=== PATIENT | female | born 1995 | race Caucasian/White ===

== ENCOUNTER 2021-02-13 09:12 | Emergency (ER) | payer OTHER, SELFPAY ==
[2021-02-13 09:13] VITALS: BP 134/89; PULSE 96; RESP 18; TEMP 36.5; O2SAT 100; BMI 26.6
--- NOTE | 2021-02-13 09:33 | ED_ITS ---
HPI - Anxiety General: Chief Complaint: Anxiety Stated Complaint: Chest Pain Time Seen by Provider: 02/13/21 09:13 History of Present Illness: HPI narrative: Patient is a 25-year-old female comes to the ED with anxiety. Patient says she was at [facility] walk-in clinic and told them that she is feeling anxious and has some chest pain and they sent her immediately here to the ED. Patient says she has just been under a lot of stress lately and she is having some mild chest pain with it. Patient says this is been going on for the past couple weeks. Patient says she has had these symptoms before. She denies any shortness of breath or any other sympto ms. Patient did not want any lab work, EKG or imaging done while here in the ED. Patient does not have a primary care doctor and would like a referral to one. Associated symptoms: Deny chest pain, chills, fever(s), headache(s), nausea, palpitations or vomiting Review of Systems Const: Denies: fever(s), chills or fatigue Eyes: Denies: change in vision or eye discomfort ENMT: Denies: throat pain, odynophagia, nasal discharge or nasal congestion Card: Denies: chest pain, palpitations, edema, swelling of feet/ankles, dyspnea on exertion or orthopnea Resp: Denies: dyspnea, productive cough or non-productive cough GI: Denies: abdominal pain, nausea, vomiting, diarrhea, constipation or hematochezia : Denies: flank pain, dysuria or hematuria Musc: Denies: neck pain, back pain or extremity swelling Skin/Breast: Denies: rash or new lesions Neuro: Denies: headache(s), numbness in extremities or weakness in extremities Psych: Reports: anxiety and other (stress) [facility] Female Reproductive History: Date of last menstrual period: 01/30/21 Physical Exam Const: COMMON NORMALS: no acute distress, patient oriented x3, healthy appearing and alert GENERAL APPEARANCE: cooperative and comfortable HENMT: COMMON NORMALS: normocephalic HEAD & SCALP: normocephalic MOUTH: Normal oral and palatal mucosa present THROAT: posterior oropharynx normal and uvula midline Neck/C-Spine: COMMON NORMALS: supple GENERAL: Yes normal visual inspection Resp: COMMON NORMALS: normal respiratory effort, No retractions, No use of accessory muscles and clear to auscultation bilaterally AUSCULTATION: clear to auscultation bilaterally Cardio: COMMON NORMALS: regular rate, regular rhythm, S1 normal heart sound pr esent, S2 normal heart sound present, No gallops present (Cardio), No clicks present (Cardio), No murmurs present (Cardio) and Peripheral pulses 2+ throughout RATE: regular rate RHYTHM: regular rhythm HEART SOUNDS: S1 normal heart sound present and S2 normal heart sound present PERIPHERAL PULSES: Peripheral pulses 2+ throughout GI: COMMON NORMALS: Normal to inspection, nondistended, normoactive bowel sounds present, Soft to palpation, non-tender and no masses PALPATION: Yes Soft to palpation : COMMON NORMALS: Yes no CVA tenderness BLADDER/KIDNEY EXAM: Yes no CVA tenderness Back/Pelvis: COMMON NORMALS: no CVA tenderness Extremity: COMMON NORMALS: normal to inspection Neuro: COMMON NORMALS: patient oriented x3 and moves all extremities SENSORIUM/ORIENTATION: Yes alert Psych: COMMON NORMALS: mental status grossly normal, cooperative, speech normal and activity/motor behavior normal SPEECH: Yes normal speech MOOD & AFFECT: Yes anxious Skin: GENERAL SKIN EXAM: dry skin Course Vital Signs: Vital signs: Vital Signs Temperature 97.7 F 02/13/21 09:50 Pulse Rate 96 02/13/21 09:13 Respiratory Rate 18 02/13/21 09:50 Blood Pressure 134/89 02/13/21 09:13 Pulse Oximetry 100 02/13/21 09:50 MDM - Anxiety MDM Narrative: Medical decision making narrative: Patient is a 25-year-old female who comes to the ED with acute anxiety. Patient has had the symptoms before. Patient refused any labs, testing or imaging done here in the ED. Patient's main concern is she would like to get established with a PCP to help discuss management options for anxiety. I placed order with case management for patient to be referred to a PCP. Patient's physical exam is normal and she appears nontoxic and in no acute distress. Vitals stable. Patient was diagnosed with acute anxiety and discharged home with a prescription for Vistaril. Told patient she will be getting a call from wrapper caser in the next several days set up an appointment with the PCP. Return to ED precautions given. Patient understood and agree with plan. Discharge Plan Discharge Patient Disposition: Home Clinical Impression: Acute anxiety Condition: Stable Prescriptions: New Vistaril 50 mg capsule 50 mg PO BID PRN (Reason: anxiety) Qty: 12 RF: 0 No Action Probiotic Acidophilus 1.5 mg (250 million cell) Capsule 500 mmu cells PO BID RF: 0 Discharge Orders: Discharge ED (Routine); Ordered 02/13/21 Ordered By: Javier Mesa Discharge Diet: Regular Discharge Activity: Resume usual activity Patient Instructions: Anxiety (ED) Activity Restrictions/Additional Instructions: Follow-up with medical provider as directed. Case management will be contacting you in the next several days to set up an appointment with a primary care physician. Take medications as prescribed for any acute anxiety. Vistaril can cause some drowsiness so use with caution during the day. Return to the ER or y our medical provider if condition worsens. Please read and understand discharge instructions. If any questions, please ask. Coding Level of Care Code ED Political Science Research Assistant for [employer] Fwd Exam Comprehensive
[2021-02-13 09:50] VITALS: RESP 18; TEMP 36.5; O2SAT 100
--- NOTE | 2021-02-20 10:36 | DCPLANNER ---
high risk case manager had message to speak with patient about getting established with a primary care physician. high risk case manager called phone number [phone], unable to speak with patient at this time, and unable to leave a voicemail for patient due to patient not accepting phone calls.
--- NOTE | 2021-02-26 13:49 | DCPLANNER ---
Patient returned special education case manager phone call, stated that she did want to get established with a primary care physician. manager therapy called the [facility] in [place], gave clinic patients information. A follow up appointment was scheduled for Tuesday, March 02, 2021 at 2:00 with Junie Lorenz. manager therapy called patient and gave patient the appointment information.
--- NOTE | 2021-03-17 14:30 | DCPLANNER ---
Patient had a follow up appointment scheduled for 03.02.21 with [facility] in [place] - patient did attend appointment.
== END 2021-02-13 09:51 | disposition home or self-care (01) ==
PROVIDERS: Emergency Provider Physician Assistant
DX: F41.9 Anxiety disorder, unspecified (principal)
CPT/HCPCS: 99282